=== PATIENT | female | born 1940 | race African-American/Black ===

== ENCOUNTER 2016-10-23 10:44 | Emergency (ER) | payer OTHER ==
[2016-10-23 10:50] VITALS: BP 160/68; PULSE 60; TEMP 98; BMI 29.0
--- NOTE | 2016-10-23 12:20 | PDOC ---
History of Present Illness - General History Source: Patient Exam Limitations: No Limitations - History of Present Illness Initial Comments: 10/23/16 13:31 The patient is a 76-year-old female with a significant past medical history of diabetes, hypertension, hypercholesterolemia, CVA, blood clots, CAD, cardiac cath, angioplasty, and presents to the emergency department with headache and dizziness s/p head injury at 9:30 am this morning. The patient reports that a shelf fell on her, localized to the frontal region of her head. She states she did not fall though. The patient denies syncope or loss of consciousness. The patient states that she is on blood thinner medication. The patient denies chest pain or shortness of breath. The patient denies fever, chills, nausea, vomit, diarrhea and constipation. The patient denies dysuria, frequency, urgency and hematuria. Allergies: simvastatin Past Surgical History: cardiac cath, angioplasty Social History: No toxic habits PCP: Dr. Estefani Jacinto <Sosa Harris - Last Filed: 10/23/16 15:44> <Rahat Munguia - Last Filed: 10/23/16 16:23> - General Chief Complaint: Injury Stated Complaint: DIZZINESS Time Seen by Provider: 10/23/16 12:15 Past History <Sosa Harris - Last Filed: 10/23/16 15:44> - Past Medical History Anemia: No Asthma: No Cancer: No Cardiac Disorders: Yes (CAD) CVA: Yes (no weakness) COPD: No Dementia: No Diabetes: Yes GI Disorders: No Disorders: No HTN: Yes Hypercholesterolemia: Yes Liver Disease: No Suicide Attempt (Hx): No Seizures: No Thyroid Disease: No - Surgical History Abdominal Surgery: No Appendectomy: No Cardiac Surgery: Yes (cardiac cath,ANGIOPLASTY) Cholecystectomy: No Lung Surgery: No Neurologic Surgery: No Orthopedic Surgery: No - Reproductive History Ectopic : Yes - Immunization History Td Vaccination: No - Psycho/Social/Smoking Cessation Hx Anxiety: No Suicidal Ideation: No Smoking Status: No Smoking History: Never smoked Have you smoked in the past 12 months: No Number of Cigarettes Smoked Daily: 0 Cigars Per Day: 0 Information on smoking cessation initiated: No Hx Alcohol Use: No Drug/Substance Use Hx: No Substance Use Type: None Hx Substance Use Treatment: No <Rahat Munguia - Last Filed: 10/23/16 16:23> - Past Medical History Allergies/Adverse Reactions: Allergies Allergy/AdvReac Type Severity Reaction Status Date / Time simvastatin [From Zocor] AdvReac Mild Verified 10/23/16 10:50 Home Medications: Ambulatory Orders Lisinopril/Hydrochlorothiazide [Lisinopril-Hctz 20-25 mg Tab] 1 each PO DAILY Niacin [Niaspan] 500 mg PO HS 08/23/12 Aspirin/Dipyridamole [Aggrenox -] 1 combo PO BID 07/27/14 Review of Systems - Review of Systems Able to Perform ROS?: Yes Comments:: 10/23/16 13:31 GENERAL/CONSTITUTIONAL: No fever or chills. No weakness. HEAD, EYES, EARS, NOSE AND THROAT: No change in vision. No ear pain or discharge. No sore throat. CARDIOVASCULAR: No chest pain or shortness of breath. RESPIRATORY: No cough, wheezing, or hemoptysis. GASTROINTESTINAL: No nausea, vomiting, diarrhea or constipation. GENITOURINARY: No dysuria, frequency, or change in urination. MUSCULOSKELETAL: No joint or muscle swelling or pain. No neck or back pain. SKIN: No rash NEUROLOGIC: (+) Headache, (+) dizziness. No vertigo, loss of consciousness, or change in strength/sensation. ENDOCRINE: No increased thirst. No abnormal weight change. HEMATOLOGIC/LYMPHATIC: (+) History of blood clots. No anemia or easy bleeding. ALLERGIC/IMMUNOLOGIC: No hives or skin allergy. <Harris,Sosa - Last Filed: 10/23/16 15:44> *Physical Exam - Vital Signs Last Vital Signs Temp Pulse Resp BP Pulse Ox 98 F 60 18 160/68 99 10/23/16 10:46 10/23/16 10:46 10/23/16 10:46 10/23/16 10:46 10/23/16 10:46 - Physical Exam Comments: 10/23/16 13:31 GENERAL: Awake, alert, and fully oriented, in no acute distress HEAD: No signs of trauma EYES: PERRLA, EOMI, sclera anicteric, conjunctiva clear ENT: Auricles normal inspection, hearing grossly normal, nares patent, oropharynx clear without exudates. Moist mucosa NECK: Normal ROM, supple, no lymphadenopathy, JVD, or masses LUNGS: Breath sounds equal, clear to auscultation bilaterally. No wheezes, and no crackles HEART: Regular rate and rhythm, normal S1 and S2, no murmurs, rubs or gallops ABDOMEN: Soft, nontender, normoactive bowel sounds. No guarding, no rebound. No masses EXTREMITIES: Normal range of motion, no edema. No clubbing or cyanosis. No cords, erythema, or tenderness NEUROLOGICAL: Cranial nerves II through XII grossly intact. Normal speech, normal gait SKIN: Warm, Dry, normal turgor, no rashes or lesions noted. <Sosa Harris - Last Filed: 10/23/16 15:44> - Vital Signs Last Vital Signs Temp Pulse Resp BP Pulse Ox 98 F 60 18 160/68 99 10/23/16 10:46 10/23/16 10:46 10/23/16 10:46 10/23/16 10:46 10/23/16 10:46 <Rahat Munguia - Last Filed: 10/23/16 16:23> Heart Score/ECG Review - ECG Impressions Comment:: 10/23/16 15:44 Normal sinus rhythm Possible anterior infarct, age undetermined Abnormal ECG <Sosa Harris - Last Filed: 10/23/16 15:44> ED Treatment Course - LABORATORY CBC & Chemistry Diagram: 10/23/16 12:30 10/23/16 12:30 - ADDITIONAL ORDERS Additional order review: Laboratory Results 10/23/16 12:30 Sodium 142 Potassium 4.2 Chloride 108 H Carbon Dioxide 30 Anion Gap 4 L BUN 20 H D Creatinine 1.2 H Creat Clearance w eGFR 43.91 Random Glucose 87 D Calcium 9.6 Total Bilirubin 0.3 D AST 15 ALT 15 D Alkaline Phosphatase 69 D Total Protein 6.9 Albumin 3.7 10/23/16 12:30 RBC 3.95 MCV 92.1 MCHC 33.1 RDW 14.9 MPV 8.9 Neutrophils % 57.8 Lymphocytes % 31.4 Monocytes % 7.3 Eosinophils % 2.6 Basophils % 0.9 <Sosa Harris - Last Filed: 10/23/16 15:44> - LABORATORY CBC & Chemistry Diagram: 10/23/16 12:30 10/23/16 12:30 <Rahat Munguia - Last Filed: 10/23/16 16:23> *DC/Admit/Observation/Transfer - Attestations Scribe Attestion: 10/23/16 13:32 Documentation prepared by Sosa Harris, acting as district medical examiner for Rahat Munguia MD. <Sosa Harris - Last Filed: 10/23/16 15:44> - Discharge Dispostion Admit: No <Rahat Munguia - Last Filed: 10/23/16 16:23> Diagnosis at time of Disposition: Injury of head Qualifiers: Encounter type: initial encounter Qualified Code(s): S09.90XA - Unspecified injury of head, initial encounter - Discharge Dispostion Disposition: HOME Condition at time of disposition: Good - Referrals Referrals: Estefani Vale MD [Primary Care Provider] - - Patient Instructions Printed Discharge Instructions: DI for Closed Head Injury Additional Instructions: Mrs Romo- So sorry this happened to you this morning. I am happy to know that both CT Scans are normal. Please continue all your medications, Follow up with your regular doctor and return to us anytime you have a problem. Best- Dr. Rahat Munguia
[2016-10-23 12:38] LABS: BASOPHIL 0.9 % (0-2.0); EOSINOPHIL 2.6 % (0-4.5); MCH 30.5 pg (25.7-33.7); MCHC 33.1 g/dl (32.0-36.0); MEAN CELL VOLUME 92.1 fl (80-96); MEAN PLT VOLUME 8.9 fl (7.5-11.1); NEUTROPHILS 57.8 % (42.8-82.8); PLATELET COUNT 205 K/MM3 (134-434); RDW 14.9 % (11.6-15.6); WHITE BLOOD COUNT 5.7 K/mm3 (4.0-10.0)
[2016-10-23 12:49] LABS: INR 0.98 (0.82-1.09); PROTHROMBIN TIME (PATIENT) 10.8 SEC (9.98-11.88)
[2016-10-23 13:09] LABS: ALBUMIN 3.7 g/dl (3.4-5.0); BILIRUBIN,TOTAL 0.3 mg/dL (0.2-1.0); CALCIUM 9.6 mg/dL (8.5-10.1); CREATININE 1.2 mg/dL (0.55-1.02); TOT PROT 6.9 g/dl (6.4-8.2)
--- NOTE | 2016-10-25 11:15 | EKG ---
Test Reason : Blood Pressure : / mmHG Vent. Rate : 060 BPM Atrial Rate : 060 BPM P-R Int : 176 ms QRS Dur : 096 ms QT Int : 432 ms P-R-T Axes : 062 -03 017 degrees QTc Int : 432 ms NORMAL SINUS RHYTHM POSSIBLE ANTERIOR INFARCT (CITED ON OR BEFORE 23-AUG-2012) ABNORMAL ECG WHEN COMPARED WITH ECG OF 11-MAY-2015 19:33, COMPARED TO EKG NO SIGNIFICANT CHANGE IS FOUND Confirmed by MATTHEW LAU MD ([id number]) on 10/25/2016 11:15:30 AM Referred By: Confirmed By:MATTHEW LAU MD
== END 2016-10-23 16:28 | disposition home or self-care (01) ==
LOC: JER 10:44
DX: S09.8XXA Other specified injuries of head, initial encounter (principal); I10 Essential (primary) hypertension; E11.9 Type 2 diabetes mellitus without complications; E78.00 Pure hypercholesterolemia, unspecified; Z86.73 Personal history of transient ischemic attack (TIA), and cerebral infarction without residual deficits; Z79.01 Long term (current) use of anticoagulants; Z98.61 Coronary angioplasty status; W20.8XXA Other cause of strike by thrown, projected or falling object, initial encounter; Y93.89 Activity, other specified; Y92.038 Other place in apartment as the place of occurrence of the external cause
CPT/HCPCS: 36415; 70450-TC; 80053; 85025; 85610; 93005; 93010; 99283-25

== ENCOUNTER 2017-01-13 14:38 | Emergency (ER) | payer OTHER ==
[2017-01-13 14:42] VITALS: BP 164/62; PULSE 85; TEMP 98.6; BMI 30.4
--- NOTE | 2017-01-13 16:02 | PDOC ---
History of Present Illness - General Chief Complaint: Rash Stated Complaint: RASH Time Seen by Provider: 01/13/17 15:49 History Source: Patient Exam Limitations: No Limitations - History of Present Illness Initial Comments: CHIEF COMPLAINT: 76 y/o afebrile female c/o itchy bumps to right arm today. HISTORY OF PRESENT ILLNESS: The patient states the other day she had a bump on her left arm. She states that went away but today she discovered 4 itchy bumps on her right arm. She denies f/c, n/v/d, cough, SOB, CP, face or tongue swelling, difficulty breathing, new medications/dyes/soaps/detergents. Vital signs on arrival are within normal limits. REVIEW OF SYSTEMS: GENERAL/CONSTITUTIONAL: No fever/chills. No weakness. No weight change. HEAD, EYES, EARS, NOSE AND THROAT: No change in vision. No ear pain or discharge. No sore throat. CARDIOVASCULAR: No chest pain or shortness of breath. RESPIRATORY: No cough, wheezing, or hemoptysis. GASTROINTESTINAL: No abd pain, nausea, vomiting, diarrhea. GENITOURINARY: No dysuria, frequency, or change in urination. MUSCULOSKELETAL: No joint or muscle swelling or pain. No neck or back pain. SKIN: +itchy bumps to right arm. NEUROLOGIC: No headache, vertigo, loss of consciousness, or loss of sensation. PHYSICAL EXAM: GENERAL: The patient is awake, alert, and fully oriented, in no acute distress. She is very well appearing and ambulatory. HEENT: No angioedema, tongue swelling or lip swelling. LUNGS: CTA EXTREMITIES: Normal range of motion, no edema. NEUROLOGICAL: Normal speech, normal gait. SKIN: 4 scattered hives on lateral right upper arm. Past History - Past Medical History Allergies/Adverse Reactions: Allergies Allergy/AdvReac Type Severity Reaction Status Date / Time simvastatin [From Zocor] AdvReac Mild Verified 01/13/17 14:42 Home Medications: Ambulatory Orders Lisinopril/Hydrochlorothiazide [Lisinopril-Hctz 20-25 mg Tab] 1 each PO DAILY Niacin [Niaspan] 500 mg PO HS 08/23/12 Aspirin/Dipyridamole [Aggrenox -] 1 combo PO BID 07/27/14 Anemia: No Asthma: No Cancer: No Cardiac Disorders: Yes (CAD) CVA: Yes (no weakness) COPD: No Dementia: No Diabetes: Yes GI Disorders: No Disorders: No HTN: Yes Hypercholesterolemia: Yes Liver Disease: No Suicide Attempt (Hx): No Seizures: No Thyroid Disease: No - Surgical History Abdominal Surgery: No Appendectomy: No Cardiac Surgery: Yes (cardiac cath,ANGIOPLASTY) Cholecystectomy: No Lung Surgery: No Neurologic Surgery: No Orthopedic Surgery: No - Reproductive History Ectopic : Yes - Immunization History Td Vaccination: No - Psycho/Social/Smoking Cessation Hx Anxiety: No Suicidal Ideation: No Smoking Status: No Smoking History: Never smoked Have you smoked in the past 12 months: No Number of Cigarettes Smoked Daily: 0 Cigars Per Day: 0 Hx Alcohol Use: No Drug/Substance Use Hx: No Substance Use Type: None Hx Substance Use Treatment: No *Physical Exam - Vital Signs Last Vital Signs Temp Pulse Resp BP Pulse Ox 98.6 F 85 18 164/62 98 01/13/17 14:39 01/13/17 14:39 01/13/17 14:39 01/13/17 14:39 01/13/17 14:39 Medical Decision Making - Medical Decision Making A/P: 76 y/o female with hives on right arm today. Suggested she apply OTC benadryl cream to the affected areas to help with itching, follow up with her doctor within 1 week and return to the ER with any worsening or concerning symptoms including facial swelling or difficulty breathing. The patient verbalizes understanding of all instructions, has no further questions and is awaiting discharge. *DC/Admit/Observation/Transfer Diagnosis at time of Disposition: Hives - Referrals Referrals: Estefani Vale MD [Primary Care Provider] - Call tomorrow - Patient Instructions Printed Discharge Instructions: DI for Hives Additional Instructions: Discharge Instructions: -Use over the counter Benadryl cream to help with itching -Follow up with Dr. Ismael Stephens within 1 week -Return to the ER with any worsening or concerning symptoms
== END 2017-01-13 16:04 | disposition home or self-care (01) ==
LOC: JERFT 14:38
DX: L50.9 Urticaria, unspecified (principal); I25.10 Atherosclerotic heart disease of native coronary artery without angina pectoris; I10 Essential (primary) hypertension; Z95.5 Presence of coronary angioplasty implant and graft; E78.00 Pure hypercholesterolemia, unspecified; Z86.73 Personal history of transient ischemic attack (TIA), and cerebral infarction without residual deficits
CPT/HCPCS: 99281-25

== ENCOUNTER 2017-06-01 10:07 | Emergency (ER) | payer OTHER ==
[2017-06-01 10:13] VITALS: BP 149/75; PULSE 85; TEMP 98.3; BMI 29.5
[2017-06-01] MEDS ORDERED: ACETAMINOPHEN 325 MG TABLET (FP) PO ONE (11:14)
[2017-06-01] MEDS ORDERED: ACETAMINOPHEN 325 MG TABLET (FP) ONE (11:17)
--- NOTE | 2017-06-01 11:20 | PDOC ---
History of Present Illness - General Chief Complaint: Pain, Acute Stated Complaint: LT SHOULDER PAIN Time Seen by Provider: 06/01/17 11:05 History Source: Patient Exam Limitations: No Limitations - History of Present Illness Initial Comments: 06/01/17 11:15 77 yr female history of CVA on aggrenox states she lifted heavy laundry basket yesterday and felt pain to her neck, was unable to sleep due to pain. P ain is worse with movement of her neck and with moving her left arm, feels a pulling sensation to the side of her neck. Pt denies chest pain neg nausea neg jaw pain. 06/01/17 11:19 06/01/17 11:20 Occurred: reports: yesterday Severity: reports: moderate Past History - Past Medical History Allergies/Adverse Reactions: Allergies Allergy/AdvReac Type Severity Reaction Status Date / Time simvastatin [From Zocor] AdvReac Mild Verified 06/01/17 10:12 Home Medications: Ambulatory Orders Lisinopril/Hydrochlorothiazide [Lisinopril-Hctz 20-25 mg Tab] 1 each PO DAILY Niacin [Niaspan] 500 mg PO HS 08/23/12 Aspirin/Dipyridamole [Aggrenox -] 1 combo PO BID 07/27/14 Cyclobenzaprine HCl [Flexeril -] 5 mg PO TID #12 tablet 06/01/17 Anemia: No Asthma: No Cancer: No Cardiac Disorders: Yes (CAD) CVA: Yes (no weakness) COPD: No Dementia: No Diabetes: Yes GI Disorders: No Disorders: No HTN: Yes Hypercholesterolemia: Yes Liver Disease: No Seizures: No Thyroid Disease: No - Surgical History Abdominal Surgery: No Appendectomy: No Cardiac Surgery: Yes (cardiac cath,ANGIOPLASTY) Cholecystectomy: No Lung Surgery: No Neurologic Surgery: No Orthopedic Surgery: No - Reproductive History Ectopic : Yes - Immunization History Td Vaccination: No - Suicide/Smoking/Psychosocial Hx Smoking Status: No Smoking History: Never smoked Have you smoked in the past 12 months: No Number of Cigarettes Smoked Daily: 0 Cigars Per Day: 0 Information on smoking cessation initiated: No Hx Alcohol Use: No Drug/Substance Use Hx: No Substance Use Type: None Hx Substance Use Treatment: No Review of Systems - Review of Systems Able to Perform ROS?: Yes Is the patient limited Mongolian proficient: No Constitutional: No: Symptoms Reported HEENTM: No: Symptoms Reported Respiratory: No: Symptoms reported Cardiac (ROS): No: Symptoms Reported ABD/GI: No: Symptoms Reported : No: Symptoms Reported Musculoskeletal: Yes: See HPI *Physical Exam - Vital Signs Last Vital Signs Temp Pulse Resp BP Pulse Ox 98.3 F 85 18 149/75 98 06/01/17 10:10 06/01/17 10:10 06/01/17 10:10 06/01/17 10:10 06/01/17 10:10 - Physical Exam General Appearance: Yes: Nourished, Appropriately Dressed HEENT: positive: EOMI, ADRIEN, Normal ENT Inspection, TMs Normal, Pharynx Normal Neck: positive: Supple, Tender lateral (left side ). negative: Tender Respiratory/Chest: positive: Lungs Clear, Normal Breath Sounds. negative: Chest Tender Cardiovascular: positive: Regular Rhythm, Regular Rate Gastrointestinal/Abdominal: positive: Normal Bowel Sounds, Soft. negative: Tender Musculoskeletal: positive: Normal Inspection Extremity: positive: Normal Capillary Refill, Normal Inspection, Normal Range of Motion Integumentary: positive: Normal Color, Dry, Warm Neurologic: positive: Fully Oriented, Alert, Normal Mood/Affect, Normal Response , Motor Strength 5/5 Medical Decision Making - Medical Decision Making 06/01/17 11:27 cc: pain left side of neck radiates to her shoulder and arm, tender to palpation left lateral muscle reproduced with abduction fo the shoulder and raising the shoulder above her head , turning neck side to side will give tylenol now , xray cervical spine *DC/Admit/Observation/Transfer Diagnosis at time of Disposition: Strain of neck Qualifiers: Encounter type: initial encounter Qualified Code(s): S16.1XXA - Strain of muscle, fascia and tendon at neck level, initial encounter - Discharge Dispostion Disposition: HOME Condition at time of disposition: Good - Prescriptions Prescriptions: Cyclobenzaprine HCl [Flexeril -] 5 mg PO TID #12 tablet - Referrals Referrals: Estefani Vale MD [Primary Care Provider] - - Patient Instructions Additional Instructions: apply warm compresses to the area of pain every 4hrs for 20 minutes get an over the counter muscle cream such as Aspercream, ICy Hot or Bengay and use as directed take tylenol for pain you can also take flexeril as directed for muscle spasm DO NOT DRIVE, DRINK ALCOHOL OR OPERATE MACHINERY WHILE TAKING FLEXERIL follow with your doctor in 2 days for follow up if not improving or certanily if worse
== END 2017-06-01 12:38 | disposition home or self-care (01) ==
LOC: JERFT 10:07
DX: S16.1XXA Strain of muscle, fascia and tendon at neck level, initial encounter (principal); I25.10 Atherosclerotic heart disease of native coronary artery without angina pectoris; Z98.61 Coronary angioplasty status; I10 Essential (primary) hypertension; E11.9 Type 2 diabetes mellitus without complications; E78.00 Pure hypercholesterolemia, unspecified; Z86.73 Personal history of transient ischemic attack (TIA), and cerebral infarction without residual deficits
CPT/HCPCS: 72050-TC; 99281-25

== ENCOUNTER 2017-09-30 00:35 | Emergency (ER) | payer OTHER ==
[2017-09-30 03:11] VITALS: BP 119/68; PULSE 85; TEMP 97.8; BMI 29.0
[2017-09-30] MEDS ORDERED: diazePAM 5 MG TABLET PO ONE (03:31)
[2017-09-30] MEDS ORDERED: ACETAMINOPHEN 500 MG TABLET (FP) PO ONE (03:31)
--- NOTE | 2017-09-30 03:35 | PDOC ---
History of Present Illness - General Chief Complaint: Pain, Acute Stated Complaint: NECK PAIN Time Seen by Provider: 09/30/17 03:10 - History of Present Illness Initial Comments: 09/30/17 03:29 CHIEF COMPLAINT: neck pain HISTORY OF PRESENT ILLNESS: 77 yo F with hx of with a significant past medical history of diabetes, hypertension, hypercholesterolemia, CVA, blood clots, CAD, cardiac cath, and angioplasty presents to the ED with left lateral neck pain. Patient was seen 5 months ago for similar symptoms. The patient denies chest pain or shortness of breath. The patient denies fever, chills, nausea, vomit, diarrhea and constipation. The patient denies dysuria, frequency, urgency and hematuria. Allergies: simvastatin PAST MEDICAL HISTORY: as per HPI FAMILY HISTORY: Denies SOCIAL HISTORY: Denies tobacco, alcohol, illicit drug use. SURGICAL HISTORY: cardiac cath, angioplasty ALLERGIES: simvastatin REVIEW OF SYSTEMS General/Constitutional: Denies fever or chills. Denies weakness, weight change. HEENT: Denies change in vision. Denies ear pain or discharge. Denies sore throat. Cardiovascular: Denies chest pain or shortness of breath. Respiratory: Denies cough, wheezing, or hemoptysis. Gastrointestinal: Denies nausea, vomiting, diarrhea or constipation. Denies rectal bleeding. Genitourinary: Denies dysuria, frequency, or change in urination. Musculoskeletal: Denies joint or muscle swelling or pain. Denies neck or back pain. Skin and breasts: Denies rash or easy bruising. Neurologic: Denies headache, vertigo, loss of consciousness, or loss of sensation. PHYSICAL EXAM General Appearance: Well-appearing, appropriately dressed. No apparent distress , no intoxication. HEENT: EOMI, PERRLA, normal ENT inspection, normal voice, TMs normal, pharynx normal. No conjunctival pallor. No photophobia, scleral icterus. Neck: Supple. Trachea midline. No tenderness, rigidity, carotid bruit, stridor , lymphadenopathy, or thyromegaly. Respiratory/Chest: Lungs CTAB. No shortness of breath, chest tenderness, respiratory distress, accessory muscle use. No crackles, rales, rhonchi, stridor , wheezing, dullness Cardiovascular: RRR. S1, S2. No JVD, murmur, bradycardia, tachycardia. Vascular Pulses: Dorsalis-Pedis (R): 2+, Dorsalis-Pedis (L): 2+ Gastrointestinal/Abdominal: Normal bowel sounds. Abdomen soft, non-distended. No tenderness or rebound tenderness. No organomegaly, pulsatile mass, guarding , hernia, hepatomegaly, splenomegaly. Lymphatic: No adenopathy, tenderness. Musculoskeletal/Extremities: Normal inspection. FROM of all extremities, normal capillary refill. Pelvis Stable. No CVA tenderness. No tenderness to extremities, pedal edema, swelling, erythema or deformity. Integumentary: Appropriate color, dry, warm. No cyanosis, erythema, jaundice or rash Neurologic: scallop cutter II-XII intact. Fully oriented, alert. Appropriate mood/affect. Motor strength 5/5. No appreciable EOM palsy, facial droop or sensory deficit. Past History - Past Medical History Allergies/Adverse Reactions: Allergies Allergy/AdvReac Type Severity Reaction Status Date / Time simvastatin [From Zocor] AdvReac Mild Verified 09/30/17 01:56 Home Medications: Ambulatory Orders Lisinopril/Hydrochlorothiazide [Lisinopril-Hctz 20-25 mg Tab] 1 each PO DAILY Niacin [Niaspan] 500 mg PO HS 08/23/12 Aspirin/Dipyridamole [Aggrenox -] 1 combo PO BID 07/27/14 Cyclobenzaprine HCl [Flexeril -] 5 mg PO TID #12 tablet 06/01/17 Diazepam [Valium] 2 mg PO HS PRN #7 tablet MDD 1 09/30/17 Anemia: No Asthma: No Cancer: No Cardiac Disorders: Yes (CAD) CVA: Yes (no weakness) COPD: No Dementia: No Diabetes: Yes GI Disorders: No Disorders: No HTN: Yes Hypercholesterolemia: Yes Liver Disease: No Seizures: No Thyroid Disease: No - Surgical History Abdominal Surgery: No Appendectomy: No Cardiac Surgery: Yes (cardiac cath,ANGIOPLASTY) Cholecystectomy: No Lung Surgery: No Neurologic Surgery: No Orthopedic Surgery: No - Reproductive History Ectopic : Yes - Immunization History Td Vaccination: No - Suicide/Smoking/Psychosocial Hx Smoking Status: No Smoking History: Never smoked Have you smoked in the past 12 months: No Number of Cigarettes Smoked Daily: 0 Cigars Per Day: 0 Hx Alcohol Use: No Drug/Substance Use Hx: No Substance Use Type: None Hx Substance Use Treatment: No *Physical Exam - Vital Signs Last Vital Signs Temp Pulse Resp BP Pulse Ox 97.8 F 85 18 119/68 100 09/30/17 01:57 09/30/17 01:57 09/30/17 01:57 09/30/17 01:57 09/30/17 01:57 *DC/Admit/Observation/Transfer Diagnosis at time of Disposition: Strain of neck - Discharge Dispostion Disposition: HOME Condition at time of disposition: Stable Admit: No - Prescriptions Prescriptions: Diazepam [Valium] 2 mg PO HS PRN #7 tablet MDD 1 PRN Reason: neck pain - Referrals Referrals: Amie Richards MD [Primary Care Provider] - Gualberto Valdez MD [Staff Physician] - Onofre Carlson MD [Staff Physician] - - Patient Instructions Printed Discharge Instructions: DI for Neck Sprain Additional Instructions: Please take medications as prescribed. You MUST follow up with orthopedics and neurosurgery within the next WEEK. Do NOT drive, drink alcohol, operate machinery, or try to do anything particularly active while taking Valium. If you develop any new neck pain, shortness of breath, weakness, change in vision, chest pain, difficulty speaking/swallowing, or any new or worsening symptoms, please return to the ER immediately. - Post Discharge Activity
[2017-09-30] MEDS ORDERED: ACETAMINOPHEN 325 MG TABLET (FP) ONE (04:55)
[2017-09-30] MEDS ORDERED: diazePAM 2 MG TABLET ONE (04:56)
--- NOTE | 2017-09-30 05:22 | PDOC ---
*Physical Exam - Vital Signs Last Vital Signs Temp Pulse Resp BP Pulse Ox 97.8 F 85 18 119/68 100 09/30/17 01:57 09/30/17 01:57 09/30/17 01:57 09/30/17 01:57 09/30/17 01:57 ED Treatment Course - Medications Given in the ED: ED Medications Discontinued Medications Generic Name Dose Route Start Last Admin Trade Name Freq PRN Reason Stop Dose Admin Acetaminophen 500 mg 09/30/17 03:31 09/30/17 05:02 Tylenol - PO 09/30/17 03:32 500 mg ONCE ONE Administration Diazepam 2 mg 09/30/17 03:31 09/30/17 05:03 Valium - PO 09/30/17 03:32 2 mg ONCE ONE Administration Medical Decision Making - Medical Decision Making 09/30/17 05:22 agree with care from SARAH Mills *DC/Admit/Observation/Transfer Diagnosis at time of Disposition: Strain of neck - Discharge Dispostion Disposition: HOME Condition at time of disposition: Stable - Prescriptions Prescriptions: Diazepam [Valium] 2 mg PO HS PRN #7 tablet MDD 1 PRN Reason: neck pain - Referrals Referrals: Onofre Carlson MD [Staff Physician] - Gualberto Valdez MD [Staff Physician] - Amie Richards MD [Primary Care Provider] - - Patient Instructions Printed Discharge Instructions: DI for Neck Sprain Additional Instructions: Please take medications as prescribed. You MUST follow up with orthopedics and neurosurgery within the next WEEK. Do NOT drive, drink alcohol, operate machinery, or try to do anything particularly active while taking Valium. If you develop any new neck pain, shortness of breath, weakness, change in vision, chest pain, difficulty speaking/swallowing, or any new or worsening symptoms, please return to the ER immediately. - Post Discharge Activity
== END 2017-09-30 05:21 | disposition home or self-care (01) ==
LOC: JER 00:35
DX: S16.1XXA Strain of muscle, fascia and tendon at neck level, initial encounter (principal); I25.10 Atherosclerotic heart disease of native coronary artery without angina pectoris; I10 Essential (primary) hypertension; Z95.5 Presence of coronary angioplasty implant and graft; E11.9 Type 2 diabetes mellitus without complications; Z79.84 Long term (current) use of oral hypoglycemic drugs; Z86.73 Personal history of transient ischemic attack (TIA), and cerebral infarction without residual deficits
CPT/HCPCS: 72125-TC; 99281-25

== ENCOUNTER 2022-07-08 07:43 | Emergency (ER) | payer OTHER ==
[2022-07-08 07:56] VITALS: BP 121/63; PULSE 52; RESP 16; TEMP 97.8; BMI 20.3
[2022-07-08] MEDS ORDERED: MINERAL OIL ENEMA 133 ML ENEMA PR ONE (08:45)
== END 2022-07-08 09:32 | disposition home or self-care (01) ==
LOC: JER 07:43
DX: K56.41 Fecal impaction (principal)
CPT/HCPCS: 74018-TC-FY; 99283-25

== ENCOUNTER 2022-10-11 08:24 | Emergency (ER) | payer OTHER ==
[2022-10-11 08:40] VITALS: TEMP 97; BMI 26.3
[2022-10-11 12:06] VITALS: BP 120/68; PULSE 63; RESP 16
== END 2022-10-11 12:07 | disposition home or self-care (01) ==
LOC: JER 08:24
DX: T54.3X1A Toxic effect of corrosive alkalis and alkali-like substances, accidental (unintentional), initial encounter (principal)
CPT/HCPCS: 99283-25; 99285-25

== ENCOUNTER 2024-03-15 14:55 | Observation (INO) | payer OTHER ==
[2024-03-15 16:39] LABS: EOS % 0.8 % (0-4.5); HEMOGLOBIN 12.3 GM/dL (10.7-15.3); LYMPH % 18.7 % (8-40); MCHC 33.2 g/dl (32.0-36.0); MEAN CELL VOLUME 93.4 fl (80-96); MEAN PLT VOLUME 9.2 fl (7.5-11.1); MONO % 5.7 % (3.8-10.2); NEUT % 73.8 % (42.8-82.8); PLATELET COUNT 212 10^3/uL (134-434); RBC 3.96 M/mm3 (3.60-5.2); RDW 13.6 % (11.6-15.6); WHITE BLOOD COUNT 7.6 K/mm3 (4.0-10.0)
[2024-03-15 16:58] LABS: POTASSIUM 4.7 mmol/L (3.5-5.1)
[2024-03-15 16:59] LABS: CALCIUM 9.1 mg/dL (8.5-10.1); INR 1.03 (0.83-1.09); PROTHROMBIN TIME (PATIENT) 11.8 SEC (9.7-13.0)
[2024-03-15 17:00] LABS: ALBUMIN 3.2 g/dl (3.4-5.0); BLOOD UREA NITROGEN 22.9 mg/dL (7-18)
[2024-03-15 17:02] LABS: ACTIVATED PTT 29.3 SECONDS (25.2-36.5)
[2024-03-15 17:03] LABS: CREATININE 1.2 mg/dL (0.55-1.3)
[2024-03-15 17:05] LABS: BILIRUBIN,TOTAL 0.4 mg/dL (0.2-1); TOT PROT 6.3 g/dl (6.4-8.2)
[2024-03-15] MEDS ORDERED: QUEtiapine FUMARATE 25 MG TABLET ONE (18:11)
[2024-03-15] MEDS: QUEtiapine FUMARATE 25 MG TABLET PO ONE (18:24)
[2024-03-15 22:42] VITALS: RESP 16; BMI 27.7
[2024-03-15] MEDS: SODIUM CHLORIDE 1,000 ML IV STA (22:48)
[2024-03-15] MEDS: ASPIRIN/DIPYRIDAMOLE 25 MG/200 MG CAPSULE PO SCH (23:00)
[2024-03-15] MEDS: ATORVASTATIN CA 10 MG TABLET (FP) PO SCH (23:00)
[2024-03-15] MEDS: LISINOPRIL 5 MG TABLET PO SCH (23:00)
[2024-03-15] MEDS: DONEPEZIL HCL 10 MG TABLET (FP) PO SCH (23:00)
[2024-03-15] MEDS: PATIENT'S OWN MEDICATION (NON-FORMULARY) (Memantine Hcl/Donepezil Hcl [Namzaric 28 Mg-10 M PO SCH (23:01)
[2024-03-15] MEDS: MEMANTINE HCL 10 MG TABLET (FP) PO SCH (23:01)
[2024-03-16] MEDS: LACTATED RINGERS SOLUTION 1,000 ML/1,000 ML INFUS.BAG IV SCH ×2 (00:52→12:30)
[2024-03-16 06:40] VITALS: TEMP 97.9
[2024-03-16 08:45] LABS: BASO % 1.1 % (0-2.0); EOS % 2.1 % (0-4.5); HEMATOCRIT 36.9 % (32.4-45.2); HEMOGLOBIN 12.4 GM/dL (10.7-15.3); LYMPH % 34.1 % (8-40); MCH 31.4 pg (25.7-33.7); MCHC 33.5 g/dl (32.0-36.0); MEAN CELL VOLUME 93.6 fl (80-96); MEAN PLT VOLUME 8.9 fl (7.5-11.1); MONO % 7.9 % (3.8-10.2); NEUT % 54.8 % (42.8-82.8); PLATELET COUNT 209 10^3/uL (134-434); RBC 3.95 M/mm3 (3.60-5.2); RDW 13.7 % (11.6-15.6); WHITE BLOOD COUNT 5.4 K/mm3 (4.0-10.0)
[2024-03-16 08:51] LABS: POTASSIUM 4.8 mmol/L (3.5-5.1)
[2024-03-16 08:56] LABS: CALCIUM 9.2 mg/dL (8.5-10.1)
[2024-03-16 08:57] LABS: ALBUMIN 3.1 g/dl (3.4-5.0); BLOOD UREA NITROGEN 18.9 mg/dL (7-18)
[2024-03-16 09:00] LABS: CREATININE 1.1 mg/dL (0.55-1.3); PHOSPHOROUS 2.7 mg/dL (2.5-4.9)
[2024-03-16 09:01] LABS: BILIRUBIN,TOTAL 0.5 mg/dL (0.2-1)
[2024-03-16] MEDS: ENOXAPARIN NA (PORCINE) 40 MG/0.4 ML DISP.SYRIN SQ SCH (10:34)
[2024-03-16 15:11] VITALS: BP 142/85; PULSE 60
== END 2024-03-16 15:30 | disposition home or self-care (01) ==
LOC: JER 14:55 → JERBED 17:26 → J4S 19:25
PROVIDERS: ADMIT Internal Medicine; ATTEND Internal Medicine
PROC: 3E023GC Introduction of Other Therapeutic Substance into Muscle, Percutaneous Approach (ICD-10-PCS; principal; 2024-03-15)
PROC: 3E0337Z Introduction of Electrolytic and Water Balance Substance into Peripheral Vein, Percutaneous Approach (ICD-10-PCS; 2024-03-15)
DX: I25.10 Atherosclerotic heart disease of native coronary artery without angina pectoris (principal); I11.9 Hypertensive heart disease without heart failure; G30.8 Other Alzheimer's disease; F02.C0 Dementia in other diseases classified elsewhere, severe, without behavioral disturbance, psychotic disturbance, mood disturbance, and anxiety; Z86.73 Personal history of transient ischemic attack (TIA), and cerebral infarction without residual deficits; E78.5 Hyperlipidemia, unspecified; E11.9 Type 2 diabetes mellitus without complications; Z88.8 Allergy status to other drugs, medicaments and biological substances
CPT/HCPCS: 36415; 70450-TC; 71045-TC-FY; 72125-TC; 80053; 82962; 83036; 83735; 84100; 84484; 85025; 85610; 85730; 93005; 93010; 96360; 96361; 96372; 97116-GP; 97161-GP; 99285-25; G0378